=== PATIENT | female | born 1985 | race Caucasian/White ===

== ENCOUNTER 2023-03-19 12:21 | Outpatient (REF) | payer OTHER, SELFPAY ==
--- NOTE | ~2023-03-19 | MM_ITS ---
EXAMINATION: MM SCREENING DIGITAL BREAST TOMOSYNTHESIS, BILATERAL CLINICAL INFORMATION: Screening. Asymptomatic. COMPARISON: Mammography: There are no prior mammograms for comparison. This is a baseline study. TECHNIQUE: Digital breast tomosynthesis is performed in both the craniocaudal and mediolateral oblique views along with computer-aided detection (CAD). Synthesized 2D images are generated from the tomosynthesis. FINDINGS: There are scattered areas of fibroglandular density (ACR BI-RADS breast composition Category b). There are no significant masses, abnormal calcifications, or other abnormalities. MM/MM tomosynthesis screening BI IMPRESSION: No mammographic evidence of malignancy. ASSESSMENT: BI-RADS BI-RADS 1 - Negative RECOMMENDATION: Routine annual mammography screening. 1 year F/U This examination should not preclude the clinical evaluation of a suspicious palpable abnormality. This patient's information was entered into a reminder system with a target due date for their next mammogram.
== END 2023-03-19 12:22 | disposition home or self-care (01) ==
LOC: HO.MAMMO 12:21
PROVIDERS: PCP Internal Medicine; Visit Provider Obstetrics & Gynecology
DX: Z12.31 Encounter for screening mammogram for malignant neoplasm of breast (principal)
CPT/HCPCS: 77063; 77067

== ENCOUNTER → 2023-03-19 12:30 | Outpatient (BNV) | payer OTHER, SELFPAY | PROVIDERS: PCP Internal Medicine; Visit Provider Radiology Diagnostic Radiology | DX: Z12.31 Encounter for screening mammogram for malignant neoplasm of breast (principal) | CPT/HCPCS: 77063; 77067 ==

== ENCOUNTER 2023-11-02 10:01 | Outpatient (REF) | payer OTHER, SELFPAY ==
--- NOTE | ~2023-11-02 | US_ITS ---
EXAMINATION: US RETROPERITONEAL LIMITED (RENAL ONLY) CLINICAL INFORMATION: Calculus of kidney. COMPARISON: None available. TECHNIQUE: Real-time imaging of the kidneys. FINDINGS: RIGHT KIDNEY: 12.1 x 4.5 x 5.4 cm (SAG x AP x TRV). The kidney is normal in size, contour, and echogenicity. Renal cortical thickness. 3 calculi are seen with a 4 mm upper pole calculus and 1.3 and 1.0 cm lower pole calculi. These are nonobstructing. No focal parenchymal lesions or hydronephrosis. LEFT KIDNEY: 11.4 x 4.6 x 5.2 cm (SAG x AP x TRV). The kidney is normal in size, contour, and echogenicity. Renal cortical thickness is normal. 3 nonobstructing renal calculi are present with a 4 mm upper pole calculus, a 6 mm mid renal calculus and a 4 mm lower pole calculus. No focal parenchymal lesions or hydronephrosis. US/US renal BI IMPRESSION: Bilateral nonobstructing renal calculi.
== END 2023-11-02 10:02 | disposition home or self-care (01) ==
LOC: HO.US 10:01
PROVIDERS: PCP Internal Medicine; Visit Provider Physician Assistant Medical
DX: N20.0 Calculus of kidney (principal)
CPT/HCPCS: 76775

== ENCOUNTER 2023-12-03 10:13 | Emergency (ER) | payer OTHER, SELFPAY ==
--- NOTE | ~2023-12-03 | CT_ITS ---
EXAMINATION: CT ABDOMEN AND PELVIS WITHOUT CONTRAST CLINICAL INFORMATION: Right flank pain COMPARISON: Renal ultrasound November 02, 2023 TECHNIQUE: Multidetector volumetric imaging was performed from the superior aspect of the liver through the pubic symphysis. Sagittal and coronal reformatted images were obtained on the technologist's workstation. This CT examination was performed using dose optimization techniques as appropriate, variously including the following: *Automated exposure control *Adjustment of mA and/or kV according to patient size (this includes techniques or standardized protocols for targeted exams where dose is matched to indication/reason for exam; i.e. extremities or head) *Use of iterative reconstruction technique DLP: 713 mGy-cm FINDINGS: LUNG BASES: The visualized lung bases are unremarkable. LIVER, GALLBLADDER, AND BILIARY TREE: The liver is normal in size, shape, and attenuation. No focal hepatic lesion or biliary ductal dilatation is present. Multiple small calcified gallstones in the gallbladder. No gallbladder wall thickening. No bile duct dilatation. PANCREAS: Unremarkable. SPLEEN: Spleen is mildly prominent size measuring 14 cm of length. ADRENAL GLANDS: Unremarkable. KIDNEYS AND URETERS: Right kidney: There is about 6 nonobstructive stones in the right kidney measuring 1 to 2 mm in size. There is mild hydronephrosis of right kidney and mild right-sided hydroureter. Ureter is difficult to track through the pelvis. There is a calcification of the right side of the pelvis which is likely a ureteral stone. This measures about 5 x 3 mm in size. This stone is approximately 4 cm to the ureterovesical junction. Image 619/754 series 4. There is a second calcification on image 585 series 4 at the right side of the pelvis which is likely vascular or related to the ovary. This does lie adjacent to the posterior surface of the right ovary. Left kidney: There are 2 approximately 1 mm size stones in the left kidney. There is no hydronephrosis and no hydroureter. No ureteral stone. BLADDER: Unremarkable. GASTROINTESTINAL TRACT: The small and large bowel are unremarkable. The appendix is unremarkable. ABDOMINAL WALL: No significant hernia is appreciated. LYMPH NODES: Normal. VASCULAR: There are a few small vascular wall calcifications of the abdominal aorta and iliac arteries. There is no aneurysm. PELVIC VISCERA: Uterus is anteverted. No fluid in the cul-de-sac. OSSEOUS STRUCTURES: Unremarkable. CT/CT abdomen pelvis wo IV con IMPRESSION: 1. Mild hydronephrosis of right kidney. There is a 5 x 3 mm stone in the right side of the pelvis. This is likely a stone in the distal right ureter causing hydronephrosis. 2. Small nonobstructive bilateral renal stones. 3. Cholelithiasis. 4. Mild splenomegaly. Fleischner guidelines were followed.
[2023-12-03 10:18] VITALS: BP 146/105; PULSE 117; RESP 20; TEMP 36.6; O2SAT 100; BMI 37.4
[2023-12-03 10:41] LABS: MANUAL DIFF FLAG NO
[2023-12-03 10:45] LABS: Basophils Percent Auto 0.3 % (0-2); Eosinophils Percent Auto 0.3 % (0-4); Hematocrit 42.8 % (37.0-47.0); Hemoglobin 14.5 g/dl (12.0-16.0); Imm Gran Abs Auto 0.02 X10*3/uL (0.00-0.03); Imm Gran Pct Auto 0.2 % (0.0-0.4); Lymphocytes Absolute Auto 1.3 X10*3/uL (1.2-4.9); Lymphocytes Percent Auto 14.2 % (20-40); Mean Corpuscular HGB Conc 33.9 g/dl (31.0-35.0); Mean Corpuscular Hemoglobin 28.7 pg (27.0-33.0); Mean Corpuscular Volume 84.6 fL (80.0-98.0); Mean Platelet Volume 9.4 fL (9.4-12.3); Monocytes Absolute Auto 0.7 X10*3/uL (0.1-1.2); Monocytes Percent Auto 7.1 % (2-11); Neutrophils Absolute Auto 7.3 x10*3/uL (2.0-8.3); Neutrophils Percent Auto 77.9 % (45-73); Platelet Count 211 X10*3/uL (160-400); Red Blood Count 5.06 X10*6/uL (4.20-5.50); Red Cell Distribution Width 12.8 % (11.0-16.0); White Blood Count 9.3 X10*3/uL (4.8-10.8)
[2023-12-03 10:47] LABS: Appearance Urine Clear; Color Urine Yellow; Glucose Urine UA Negative (Negative); Leukocyte Esterase Urine Moderate (2+) (Negative); Nitrite Urine Negative (Negative); Specific Gravity - Urine 1.015 (1.005-1.025); UMIC TRIGGER UACC YES; UPreg QC Valid YES; Urine Blood Trace (Negative); Urine Ketones Negative (Negative); Urine Pregnancy NEGATIVE (NEGATIVE); Urine Protein Trace mg/dL (Neg-Trace)
[2023-12-03 10:50] LABS: Bacteria Urine None Seen (None Seen); Hyaline Casts Urine 0-2 /LPF (0-2); Squamous Epithelial Cell Urine 0-2 /HPF (0-2); UACC Culture Trigger YES; WBC Urine 21-50 /HPF (0-5)
--- NOTE | 2023-12-03 10:50 | ED.ABDPAIN ---
HPI - Abdominal Pain General Chief Complaint: Abdominal Pain Stated Complaint: Kidney stones/Fever Time Seen by Provider: 12/03/23 10:39 Source: patient and family Mode of arrival: ambulatory Limitations: no limitations History of Present Illness ED Provider: EBONY CUNNINGHAM narrative: 38 yo female with PMH of kidney stones follows through [facility] has had R flank pain on and off x 2 weeks in past has had kidney stones and didn't realize she passed them. Her symptoms worsened and then she noted fever to 102 last night. NO n/v/d, no URI symptoms. She denies urinary symptoms. She was told to come to ER by family. Usually passes stones on her own. Home UTI test showed leuks MD elicited complaint: flank pain Pertinent past history: kidney stones Onset (ago): week(s) (2) Pain Consistency: intermittent Location: R flank Severity: moderate Quality: stabbing Radiation: none Migration to: no migration Exacerbating factors: nothing Relieving factors: nothing Context: history of similar episodes Associated symptoms: fever Related Data Previous Rx's ?Medication ?Instructions ?Recorded levofloxacin 500 mg tablet 500 mg PO DAILY #7 tabs 12/03/23 ondansetron 4 mg disintegrating 4 mg PO Q8H PRN nausea and 12/03/23 tablet vomiting #20 tabs prednisone 20 mg tablet 20 mg PO DAILY 3 days #3 tabs 12/03/23 tamsulosin 0.4 mg capsule 0.4 mg PO DAILY 7 days #7 caps 12/03/23 Allergies Allergy/AdvReac Type Severity Reaction Status Date / Time melon Allergy Anaphylaxis Verified 12/03/23 10:21 Penicillins Allergy Rash Verified 12/03/23 10:21 Review of Systems Review of Systems Constitutional : No Weight loss, pos Fever, No Chills ENT/Mouth : No sore throat, No Rhinorrhea Eyes: No Swelling, No Redness Cardiovascular : No Chest Pain, No SOB, NoEdema Respiratory : No Cough, No Sputum, No Wheezing Gastrointestinal : no Nausea, no Vomiting, no Diarrhea, positive abdominal Pain, No Hematochezia, No Melena Genitourinary : No Dysuria, No Urinary Frequency, No Hematuria, No Urgency Musculoskeletal : No joint pain, No Myalgias, No Joint Swelling Skin : No Skin Lesions, No rash Neuro : No Weakness, No Numbness, No Dizziness, No Headache Psych : No Anxiety/Panic, No Depression All other systems reviewed and are negative. [facility] Past Medical History Attestation statement: The following information was validated with the patient. Source: old records reviewed Medical History (Updated 12/03/23 @ 15:39 by Beverley Ramos DO) Kidney stones Surgical History (Updated 11/30/23 @ 09:45 by Radha Rockwell) S/P LEEP of cervix Family History Family History (Updated 11/30/23 @ 09:42 by Radha Rockwell) Mother CVA (cerebral vascular accident) Father Esophageal cancer Maternal Grandmother Diabetes mellitus Heart disease Maternal Grandfather Cancer Other Crohn's disease Ulcerative colitis Social History Social History Household Members: Spouse and Children Alcohol intake: former Patient Tobacco Use Status: Former Tobacco user Advance Directives: Yes Advance Directives Information Provided: Yes Advance Directives on File: No Do you have a plan to hurt others: No Plan Physical Exam ED Vital Signs: Vital Signs - 24 hr 12/03/23 10:18 12/03/23 13:08 Temperature 97.9 F 99.6 F Pulse Rate 117 H 89 Respiratory Rate 20 16 Blood Pressure 146/105 H 128/81 Pulse Oximetry 100 99 Oxygen Delivery Method Room Air Room Air BMI result Body Mass Index 37.4 Appearance: Alert. Oriented X3. No acute distress. Eyes: Pupils equal, round and reactive to light. ENT: Pharynx normal. Neck: Normal inspection. Neck supple. CVS: Normal heart rate and rhythm. Pulses normal. Respiratory: No respiratory distress. Breath sounds normal. Abdomen: Soft and nontender. Skin: Skin warm and dry. Normal skin color. Normal skin turgor. Extremities: No lower extremity edema. No calf ttp Neuro: Oriented X 3. No motor deficit. No sensory deficit. Medical Decision Making Medical Decision Making MDM Narrative: 38 yo female with PMH of renal colic has passed stones on her own at home no interventions in the past at this time pain x 2 weeks now with fever at home last night and home UTI test + last night at this time will need basic labs, UA, CT scan for renal colic, IVF and toradol Differential Diagnosis Differential Diagnoses: The differential diagnosis associated with the presentation includes renal colic UTI pyelonephritis Admission/Observation Consideration of admission/observation: Escalation of care including admission/observation considered no vomiting pain well controlled stable for DC Consult Healthcare Provider 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 12/03/23 10:36 12/03/23 10:36 Labs: Lab Results 12/03/23 12/03/23 Range/Units 10:36 11:08 WBC 9.3 (4.8-10.8) X10*3/uL RBC 5.06 (4.20-5.50) X10*6/uL Hgb 14.5 (12.0-16.0) g/dl Hct 42.8 (37.0-47.0) % MCV 84.6 (80.0-98.0) fL MCH 28.7 (27.0-33.0) pg MCHC 33.9 (31.0-35.0) g/dl RDW 12.8 (11.0-16.0) % Plt Count 211 (160-400) X10*3/uL MPV 9.4 (9.4-12.3) fL Immature Gran % (Auto) 0.2 (0.0-0.4) % Neut % (Auto) 77.9 H (45-73) % Lymph % (Auto) 14.2 L (20-40) % [place] % (Auto) 7.1 (2-11) % Eos % (Auto) 0.3 (0-4) % Baso % (Auto) 0.3 (0-2) % Lymph # (Auto) 1.3 (1.2-4.9) X10*3/uL [place] # (Auto) 0.7 (0.1-1.2) X10*3/uL Eos # (Auto) 0.0 (0.0-0.4) X10*3/uL Baso # (Auto) 0.0 (0.0-0.2) X10*3/uL Abs Immat Gran (auto) 0.02 (0.00-0.03) X10*3/uL Absolute Neuts (auto) 7.3 (2.0-8.3) x10*3/uL Absolute Nucleated RBC 0.000 (0.0-0.012) X10*3/uL Nucleated RBC % (auto) 0.0 (0.0-0.2) /100WBC Sodium 135 (135-145) mmol/L Potassium 3.7 (3.3-5.1) mmol/L Chloride 102 (96-108) mmol/L Carbon Dioxide 25 (22-29) mmol/L Anion Gap 12 (12-20) BUN 15 (9-16) mg/dL Creatinine 0.77 (0.5-1.4) mg/dL Estim Creat Clear Calc 111.9 Estimated GFR > 60 Random Glucose 115 (60-115) mg/dL Lactic Acid 0.8 (0.5-2.0) mmol/L Calcium 9.5 (8.4-10.2) mg/dL Total Bilirubin 1.0 (0.0-1.0) mg/dL Direct Bilirubin 0.3 (0.0-0.5) mg/dL AST 12 (5-31) U/L ALT 10 (0-31) U/L Alkaline Phosphatase 60 (39-117) U/L Total Protein 7.9 (6.5-8.0) g/dL Albumin 4.4 (3.5-5.0) g/dL Lipase 19 (8-78) U/L Urine Color Yellow Urine Appearance Clear Urine pH 6.0 (5.0-9.0) Ur Specific [place] 1.015 (1.005-1.025) Urine Protein Trace (Neg-Trace) mg/dL Urine Glucose (UA) Negative (Negative) mg/dL Urine Ketones Negative (Negative) mg/dL Urine Blood Trace H (Negative) Urine Nitrite Negative (Negative) Ur Leukocyte Esterase Moderate (2+) H (Negative) Urine RBC 3-5 H (0-2) /HPF Urine WBC 21-50 H (0-5) /HPF Ur Squamous Epith Cells 0-2 (0-2) /HPF Urine Bacteria None Seen (None Seen) Hyaline Casts 0-2 (0-2) /LPF Urine Test NEGATIVE (NEGATIVE) Influenza Type A (PCR) NEGATIVE (Negative) Influenza Type B (PCR) NEGATIVE (Negative) RSV RNA Qual (PCR) NEGATIVE (Negative) SARS-CoV-2 RNA (RT-PCR) NEGATIVE (Negative) Independent Interpretation I performed an independent interpretation of an: CT Scan Radiology Impression Discussion of test interpretation with radiology: I have reviewed the radiologist's reading. Independent Historian Clinical information obtained from an independent historian. History obtained from or confirmed by: Spouse External Record Review External record reviewed: Outpatient record and Prior outpatient radiology Prescription Management I considered prescription management with: Pain Medication, Antibiotic and Other Medications Administered Discontinued Medications Generic Name Dose Route Start Last Admin Trade Name Freq PRN Reason Stop Dose Admin Sodium Chloride 1,000 mls @ 999 mls/hr 12/03/23 10:40 12/03/23 12:39 Ns IV 12/03/23 11:40 Infused .Q1H1M ONE Infusion Ceftriaxone Sodium 1 gm/ 50 mls @ 100 mls/hr 12/03/23 10:51 12/03/23 12:39 Sodium Chloride IV 12/03/23 11:20 Infused ONCE ONE Infusion Ketorolac Tromethamine 15 mg 12/03/23 10:49 12/03/23 11:22 Ketorolac Tromethamine 15 Mg/Ml Vial IVPUSH 12/03/23 10:50 15 mg ONCE ONE Administration Ondansetron HCl 4 mg 12/03/23 10:49 12/03/23 11:22 Ondansetron Hcl 4 Mg/2 Ml Vial IVPUSH 12/03/23 10:50 4 mg ONCE ONE Administration Discharge Plan Discharge Clinical Impression: Ureterolithiasis, Acute UTI Patient Disposition: Home, Self-Care Instructions: Urinary Tract Infection in Women (ED), Ureteral Stones (ED) Additional Instructions: return for any worsening symptoms, pain, fever follow up with urologist as planned - sooner if you are worse take all medications as prescribed no strenuous exercise while on antibiotic and for 5 days after as we discussed. Prescriptions: New levofloxacin 500 mg tablet 500 mg PO DAILY Qty: 7 0RF ondansetron 4 mg tablet,disintegrating 4 mg PO Q8H PRN (Reason: nausea and vomiting) Qty: 20 0RF prednisone 20 mg tablet 20 mg PO DAILY 3 Days Qty: 3 0RF tamsulosin 0.4 mg capsule 0.4 mg PO DAILY 7 Days Qty: 7 0RF Stand Alone Forms: Work/School Release Print Language: Slovenian
[2023-12-03 11:00] LABS: Alanine Aminotransferase 10 U/L (0-31); Albumin Level 4.4 g/dL (3.5-5.0); Alkaline Phosphatase 60 U/L (39-117); Anion Gap 12 (12-20); Aspartate Amino Transferase 12 U/L (5-31); Bilirubin Direct 0.3 mg/dL (0.0-0.5); Blood Urea Nitrogen 15 mg/dL (9-16); Calcium 9.5 mg/dL (8.4-10.2); Carbon Dioxide 25 mmol/L (22-29); Chloride 102 mmol/L (96-108); Creatinine Clr Calc Pharmacy 111.9; Estimated Glomerular Filt Rate > 60; Glucose Random 115 mg/dL (60-115); Lipase 19 U/L (8-78); Potassium 3.7 mmol/L (3.3-5.1); Sodium 135 mmol/L (135-145); Total Protein 7.9 g/dL (6.5-8.0)
[2023-12-03] MEDS: 0.9 % Sodium Chloride 1,000 ML 999 ML IV (11:16)
[2023-12-03] MEDS: Ketorolac Tromethamine 15 MG/ML VIAL IVPUSH (11:22)
[2023-12-03] MEDS: cefTRIAXone sodium 1 GM in 0.9 % Sodium Chloride 50 ML IV (11:22)
[2023-12-03] MEDS: ondansetron HCL 4 MG/2 ML VIAL IVPUSH (11:22)
[2023-12-03 11:27] LABS: Lactic Acid 0.8 mmol/L (0.5-2.0)
[2023-12-03 12:03] LABS: Influenza A PCR NEGATIVE (Negative); Influenza B PCR NEGATIVE (Negative); Resp Syncy Virus RNA Qual PCR NEGATIVE (Negative); SARS COV2 PCR INHOUSE NEGATIVE (Negative)
[2023-12-03 13:08] VITALS: BP 128/81; PULSE 89; RESP 16; TEMP 37.6; O2SAT 99
[2023-12-03 16:00] VITALS: BP 130/77; PULSE 93; TEMP 36.8; O2SAT 98
[2023-12-03 16:37] VITALS: BP 130/77; PULSE 93; RESP 16; TEMP 36.8; O2SAT 98
== END 2023-12-03 16:37 | disposition home or self-care (01) ==
PROVIDERS: Emergency Provider Emergency Medicine; PCP Internal Medicine
DX: N13.2 Hydronephrosis with renal and ureteral calculous obstruction (principal); N39.0 Urinary tract infection, site not specified; B96.20 Unspecified Escherichia coli [E. coli] as the cause of diseases classified elsewhere; R10.9 Unspecified abdominal pain; R50.9 Fever, unspecified; Z03.818 Encounter for observation for suspected exposure to other biological agents ruled out; Z87.442 Personal history of urinary calculi
CPT/HCPCS: 0241U; 36415; 74176; 80048; 80076; 81001; 81025; 83605; 83690; 85025; 87040; 87086; 87088; 87186; 96361; 96365; 96374; 96375; 99284; 99285; J0696; J1885; J2405

== ENCOUNTER 2024-01-07 10:28 | Outpatient (REF) | payer OTHER, SELFPAY ==
--- NOTE | ~2024-01-07 | US_ITS ---
EXAMINATION: US RETROPERITONEAL COMPLETE (RENAL) CLINICAL INFORMATION: Renal calculus. COMPARISON: CT abdomen and pelvis dated 12/03/2023; renal ultrasound dated 11/02/2023. TECHNIQUE: Real-time imaging of the kidneys and bladder. FINDINGS: RIGHT KIDNEY: 11.3 x 6.2 x 6.5 cm (SAG x AP x TRV). The kidney is normal in size, contour, and echogenicity. Renal cortical thickness is normal. No focal parenchymal lesions. At the upper pole, a 5 mm nonobstructing calculus is seen. At the lower pole, 6 mm and 4 mm nonobstructing calculi are seen. No hydronephrosis. LEFT KIDNEY: 12.1 x 5.2 x 5.2 cm (SAG x AP x TRV). The kidney is normal in size, contour, and echogenicity. Renal cortical thickness is normal. No focal parenchymal lesions. At the upper pole, a 4 mm nonobstructing calculus is seen. At the interpolar aspect, a 5 mm nonobstructing calculus is seen. No hydronephrosis. US/US renal BI IMPRESSION: There are nonobstructing bilateral renal calculi, as detailed. No hydronephrosis is seen. Electronically signed by: Chris Gazra MD 01/26/2024 12:40 PM EDT
== END 2024-01-07 10:29 | disposition home or self-care (01) ==
LOC: HO.US 10:28
PROVIDERS: Visit Provider Nurse Practitioner Family
DX: N20.0 Calculus of kidney (principal)
CPT/HCPCS: 76775

== ENCOUNTER 2024-02-23 09:09 | Outpatient (REF) | payer OTHER, SELFPAY ==
[2024-02-23 09:25] LABS: MANUAL DIFF FLAG NO
[2024-02-23 09:30] LABS: Basophils Absolute Auto 0.1 X10*3/uL (0.0-0.2); Eosinophils Absolute Auto 0.2 X10*3/uL (0.0-0.4); Eosinophils Percent Auto 2.9 % (0-4); Hematocrit 41.6 % (37.0-47.0); Hemoglobin 14.3 g/dl (12.0-16.0); Imm Gran Abs Auto 0.01 X10*3/uL (0.00-0.03); Imm Gran Pct Auto 0.2 % (0.0-0.4); Lymphocytes Absolute Auto 1.9 X10*3/uL (1.2-4.9); Lymphocytes Percent Auto 31.4 % (20-40); Mean Corpuscular HGB Conc 34.4 g/dl (31.0-35.0); Mean Corpuscular Hemoglobin 28.5 pg (27.0-33.0); Mean Corpuscular Volume 82.9 fL (80.0-98.0); Mean Platelet Volume 9.4 fL (9.4-12.3); Monocytes Absolute Auto 0.3 X10*3/uL (0.1-1.2); Monocytes Percent Auto 4.4 % (2-11); Neutrophils Absolute Auto 3.6 x10*3/uL (2.0-8.3); Neutrophils Percent Auto 60.1 % (45-73); Platelet Count 236 X10*3/uL (160-400); Red Blood Count 5.02 X10*6/uL (4.20-5.50); White Blood Count 5.9 X10*3/uL (4.8-10.8)
[2024-02-23 09:54] LABS: Alanine Aminotransferase 13 U/L (0-31); Albumin Level 4.2 g/dL (3.5-5.0); Alkaline Phosphatase 59 U/L (39-117); Anion Gap 12 (12-20); Aspartate Amino Transferase 16 U/L (5-31); Bilirubin Total 0.5 mg/dL (0.0-1.0); Blood Urea Nitrogen 12 mg/dL (9-16); Calcium 9.3 mg/dL (8.4-10.2); Carbon Dioxide 24 mmol/L (22-29); Chloride 107 mmol/L (96-108); Cholesterol 162 mg/dL (<200); Estimated Glomerular Filt Rate > 60; Glucose Random 108 mg/dL (60-115); HDL Cholesterol 51 mg/dL (>40); LDL Cholesterol Calculated 101 mg/dL (<100); Magnesium 2.1 mg/dL (1.6-2.6); Potassium 3.8 mmol/L (3.3-5.1); Sodium 139 mmol/L (135-145); Total Protein 7.4 g/dL (6.5-8.0); Triglycerides 53 mg/dL (<150)
[2024-02-23 10:16] LABS: Free T4 (Free Thyroxine) 1.03 ng/dL (0.71-1.85); Thyroid Stimulating Hormone 0.66 uIU/mL (0.32-4.0); Vitamin D 25-OH Total 46.9 ng/mL (>30)
[2024-02-23 10:52] LABS: Insulin 10 uU/mL (2-29)
[2024-02-25 01:14] LABS: Triiodothyronine T3 Free 3.5 pg/mL (2.3-4.2)
[2024-02-25 01:18] LABS: DHEA Sulfate 167 mcg/dL (19-237); Follicle Stimulating Hormone 4.7 mIU/mL; Lutenizing Hormone 8.2 mIU/mL; Sex Hormone Binding Globulin 36 nmol/L (17-124)
[2024-02-25 17:13] LABS: Homocysteine 9.6 umol/L (<10.4)
[2024-02-28 17:09] LABS: Testosterone, Free 4.7 pg/mL (0.1-6.4); Testosterone, Total 39 ng/dL (2-45)
[2024-02-29 19:29] LABS: Progesterone <0.1 ng/mL
[2024-03-02 04:29] LABS: Dihydrotestosterone <5 ng/dL (< OR = 20)
[2024-03-03 21:38] LABS: Estradiol Ultra Sensitive 108 pg/mL
== END 2024-02-23 09:10 | disposition home or self-care (01) ==
LOC: HO.LAB 09:09
PROVIDERS: PCP Physician Assistant; Visit Provider Physician Assistant
DX: E66.89 Other obesity not elsewhere classified (principal); F51.01 Primary insomnia
CPT/HCPCS: 36415; 80053; 80061; 82306; 82627; 82642; 82670; 83001; 83002; 83090; 83525; 83735; 84144; 84270; 84402; 84403; 84439; 84443; 84481; 85025

== ENCOUNTER 2024-03-25 08:02 | Outpatient (REF) | payer OTHER, SELFPAY ==
--- NOTE | ~2024-03-25 | MM_ITS ---
EXAMINATION: MM SCREENING DIGITAL BREAST TOMOSYNTHESIS, BILATERAL CLINICAL INFORMATION: Screening. Asymptomatic. COMPARISON: Mammography: Comparison is made with available priors TECHNIQUE: Digital breast mammography with tomosynthesis is performed in both the craniocaudal and mediolateral oblique views along with computer-aided detection (CAD). FINDINGS: There are scattered areas of fibroglandular density (ACR BI-RADS breast composition Category b). There are no significant masses, abnormal calcifications, or other abnormalities. MM/MM tomosynthesis screening BI IMPRESSION: No mammographic evidence of malignancy. ASSESSMENT: BI-RADS BI-RADS 1 - Negative RECOMMENDATION: Routine annual mammography screening. 1 year F/U This examination should not preclude the clinical evaluation of a suspicious palpable abnormality. This patient's information was entered into a reminder system with a target due date for their next mammogram. Electronically signed by: Shellie Mcdonald DO 04/03/2024 07:41 PM [facility]E
== END 2024-03-25 08:03 | disposition home or self-care (01) ==
LOC: HO.MAMMO 08:02
PROVIDERS: PCP Physician Assistant; Visit Provider Internal Medicine
DX: Z12.31 Encounter for screening mammogram for malignant neoplasm of breast (principal)
CPT/HCPCS: 77063; 77067

== ENCOUNTER → 2024-03-25 08:15 | Outpatient (BNV) | payer OTHER, SELFPAY | PROVIDERS: PCP Physician Assistant; Visit Provider Internal Medicine | DX: Z12.31 Encounter for screening mammogram for malignant neoplasm of breast (principal) | CPT/HCPCS: 77063; 77067 ==

== ENCOUNTER 2024-09-20 09:08 | Outpatient (AMB) | payer OTHER, SELFPAY ==
--- NOTE | 2024-09-20 09:26 | A.OFFVIS_ITS ---
Vital Signs 09/20/24 09:37 Height 5 ft 4 in Weight 189 lb BMI 32.4 BP 116/82 Blood Pressure Location Rt brachial Position Sitting Pulse 112 H Pulse Source Pulse Oximeter Pulse Oximetry (%) 99 Oxygen Delivery Method Room Air Intake Visit Reasons: [place] scrn. +FMHx. Intake Note: ESTABLISHED PATIENT for initial colo screening. + FMHx. Chief Complaint; Pt denies any GI sx or concerns at this time. FMHx of Crohn's. Pt has periodic sx but reports that they are related to her hx of migraines and does not experience them otherwise. N+V, Structural Rigger Required: No Accompanied by: Self / Same As Patient Allergies melon Allergy (Verified 09/20/24 09:27) Anaphylaxis Penicillins Allergy (Verified 09/20/24 09:27) Rash HPI HPI [place] scrn. +FMHx.: Details: 39 years old female with no significant past medical history except for seasonal allergy and migraine headaches is here today for initial consultation. Patient was sent to us by hair PCP for evaluation of possible Crohn's or ulcerative colitis. Patient reports that her mom was diagnosed with Crohn's in her early 30s. Patient also reports that her sister has IBD. Patient denies any abdominal pain, cramping, diarrhea, mucus in her stool, melena, hematochezia. No family history of CRC. Patient reports that she was told over a year ago that she has stones in her gallbladder and has changed her diet. Patient is eating clean, avoiding anything that is high in fat. Patient last over 100 lb intentionally by eating well and exercising daily. Patient reports that she suffers from migraine headaches. When she has severe migraine she will have nausea and sometimes diarrhea. Symptoms usually last about 6 hours, however patient feels better after she sleeps that off. Patient reports that she is moving her bowels daily without any issues. Patient denies dyspepsia, dysphagia or odynophagia. [facility] Medical History (Updated 09/20/24 @ 10:11 by TRUMAN Grover-) Gallstones Family history of ulcerative colitis Family history of Crohn's disease Migraine Kidney stones Surgical History S/P LEEP of cervix Family History Mother CVA (cerebral vascular accident) Father Esophageal cancer Maternal Grandmother Diabetes mellitus Heart disease Maternal Grandfather Cancer Sister Crohn's disease Other Ulcerative colitis Social History Household Members: Spouse and Children Alcohol intake: former Patient Tobacco Use Status: Former Tobacco user Review of Systems Const Denies weight gain and Denies weight loss ENT Reports no additional complaints, Denies dysphagia and Denies odynophagia Card Reports no additional complaints Resp Reports no additional complaints GI Denies abdominal pain, Denies belching, Denies melena, Denies bloating, Denies change in bowel habits, Denies dysphagia, Denies excessive flatus, Denies dyspepsia, Denies heartburn, Denies diarrhea, Reports loose stools (Occasionally with migraine headaches), Denies nausea, Denies odynophagia and Denies vomiting Musc Reports no additional complaints Neuro Reports no additional complaints Psych Reports no additional complaints Endo Reports no additional complaints Physical Exam Vital Signs: Last Vital Signs Pulse 112 H 09/20/24 09:37 BP 116/82 09/20/24 09:37 Pulse Ox 99 09/20/24 09:37 Oxygen Delivery Method Room Air 09/20/24 09:37 BMI result Body Mass Index 32.4 Const General: healthy appearing, no acute distress and well developed Nutritional Appearance: well nourished Orientation/consciousness: patient oriented x3 Resp Effort & Inspection: normal respiratory effort, able to speak in complete sentences, no tracheal deviation and symmetric chest movement Auscultation: clear to auscultation bilaterally Cardio Rate: regular rate GI Inspection: Yes normal to inspection and No distended Palpation (GI): Soft to palpation, not firm, nontender and No hepatosplenomegaly present Auscultation: normal bowel sounds General: Yes no CVA tenderness Back/Spine/Pelvis Back: no CVA tenderness Skin General skin exam: elasticity normal, turgor normal and dry skin Neuro General: patient oriented x3 Psych Appearance: grossly normal Mental Status: mental status grossly normal Assessment & Plan Assessment & Plan (1) Family history of Crohn's disease: Code(s): Z83.79 - Family history of other diseases of the digestive system Category: Medical (2) Family history of ulcerative colitis: Code(s): Z83.79 - Family history of other diseases of the digestive system Category: Medical (3) Gallstones: Code(s): K80.20 - Calculus of gallbladder without cholecystitis without obstruction Category: Medical (4) Diarrhea: Code(s): R19.7 - Diarrhea, unspecified Qualifiers: Diarrhea type: functional diarrhea Qualified Code(s): K59.1 - Functional diarrhea Plan Family history of Crohn's and ulcerative colitis. Will check CRP and fecal calprotectin. If fecal calprotectin positive patient will go for colonoscopy. Patient does not have any diarrhea or abdominal cramping. Denies any mucus, melena, hematochezia, unintentional weight loss or ribbon like stools. Reports that she is moving her bowels well without any issues. Currently patient is eating low-fat, low carb and high-protein diet. Continue that and exercising. Patient will follow-up as needed. Patient was instructed to call our office if she will have diarrhea, mucus in her stool, hematochezia, melena. She is agreeable to this plan and verbalizes understanding of instructions. She was given the opportunity to ask questions and all questions answered. Thank you for allowing me to participate in her care Orders: Orders C Reactive Protein Today K58.9 - Irritable bowel syndrome, unspecified Calprotectin, Fecal Today R15.9 - Full incontinence of feces Coding Level of Care Code New Pt Level 3 (95738) Diagnoses Family history of Crohn's disease Z83.79 Family history of ulcerative colitis Z83.79 Gallstones K80.20 Functional diarrhea K59.1 Diarrhea type: functional diarrhea Time Spent (min) 40 Comment 30 minutes spent with patient and additional 10 minutes spent reviewing her records
[2024-09-20 09:37] VITALS: BP 116/82; PULSE 112; O2SAT 99; BMI 32.4
== END 2024-09-20 10:37 | disposition home or self-care (01) ==
LOC: HO.HGI 09:09
PROVIDERS: PCP Physician Assistant; Visit Provider Nurse Practitioner Family
DX: Z83.79 Family history of other diseases of the digestive system (principal); K80.20 Calculus of gallbladder without cholecystitis without obstruction; K59.1 Functional diarrhea
CPT/HCPCS: 99203

== ENCOUNTER 2024-09-20 09:08 | Outpatient (REF) | payer OTHER, SELFPAY ==
[2024-09-20 11:34] LABS: C Reactive Protein 1.26 mg/dL (< or = 0.50)
== END 2024-09-20 09:09 | disposition home or self-care (01) ==
LOC: HO.LAB 09:08
PROVIDERS: PCP Physician Assistant; Visit Provider Nurse Practitioner Family
DX: K58.9 Irritable bowel syndrome, unspecified (principal)
CPT/HCPCS: 36415; 86140

== ENCOUNTER 2024-09-21 09:15 | Outpatient (REF) | payer OTHER, SELFPAY ==
[2024-09-28 17:43] LABS: Calprotectin, Fecal 28 mcg/g
== END 2024-09-21 09:16 | disposition home or self-care (01) ==
LOC: HO.LNP 09:15
PROVIDERS: Visit Provider Nurse Practitioner Family
DX: R15.9 Full incontinence of feces (principal)
CPT/HCPCS: 83993

== ENCOUNTER 2025-03-02 10:03 | Outpatient (REF) | payer OTHER, SELFPAY ==
--- NOTE | ~2025-03-02 | US_ITS ---
CLINICAL HISTORY: renal calculus US Renal Comparison: 11/02/2023 Findings: Right kidney normal size and echotexture, 11.6 cm length. Left kidney normal size and echotexture, 10.8 cm length. There is right renal parenchymal calculus. There is Bosniak 1 right renal cortical cyst. No hydronephrosis of either kidney. Normal color Doppler. IMPRESSION: 1. Right renal parenchymal calculus. No acute findings. This document has been electronically signed by: Denis Gerene MD on 03/03/2025 09:03:14
== END 2025-03-02 10:04 | disposition home or self-care (01) ==
LOC: HO.US 10:03
PROVIDERS: PCP Physician Assistant; Visit Provider Physician Assistant Medical
DX: N20.0 Calculus of kidney (principal)
CPT/HCPCS: 76775

== ENCOUNTER → 2025-03-02 10:40 | Outpatient (BNV) | payer OTHER, SELFPAY | PROVIDERS: PCP Physician Assistant; Visit Provider Specialist | DX: N20.0 Calculus of kidney (principal) | CPT/HCPCS: 76775 ==

== ENCOUNTER 2025-03-31 08:46 | Outpatient (REF) | payer OTHER, SELFPAY | END 2025-03-31 08:47 | disposition home or self-care (01) | LOC: HO.MAMMO 08:46 | PROVIDERS: PCP Physician Assistant; Visit Provider Physician Assistant | DX: Z12.31 Encounter for screening mammogram for malignant neoplasm of breast (principal) | CPT/HCPCS: 77063; 77067 ==

== ENCOUNTER → 2025-03-31 09:00 | Outpatient (BNV) | payer OTHER, SELFPAY | PROVIDERS: PCP Physician Assistant; Visit Provider Internal Medicine | DX: Z12.31 Encounter for screening mammogram for malignant neoplasm of breast (principal) | CPT/HCPCS: 77063; 77067 ==